=== PATIENT | female | born 1980 | race American Indian/Alaskan Native ===

== ENCOUNTER 2016-08-25 10:25 | Emergency (ER) | payer MEDICAID ==
[2016-08-25] MEDS ORDERED: BABY ASPIRIN PO ONE (11:11)
--- NOTE | 2016-08-25 11:16 | Emergency Department Report ---
Entered by DIAN BA, acting as scribe for SHALONDA GILMORE NP. Chief Complaint: Chest Pain Stated Complaint: CHEST PAIN/SOB/DIZZINESS/NAUSEOUS/LIGHTHEADED Time Seen by Provider: 08/25/16 11:05 - HPI History of Present Illness: 35 year old female who is non-toxic, non ill appearing, in no acute distress presents with c/o persistent right sided anterior chest pain that began this morning upon waking. She describes pain as aching with radiation to back, right shoulder. Pain worsens with deep breaths, palpation of chest wall. Associated symptoms include N/V, SOB, dizziness but pt denies swelling, numbness and tingling to extremities. - ROS Review of Systems: Reports right anterior chest pain, radiated pain to back and right shoulder, N/ V, SOB, dizziness. Denies swelling, numbness and tingling to extremities. - Exam Vital Signs: Vital Signs 08/25/16 10:52 Temperature 98.3 F Pulse Rate 69 Respiratory 22 Rate Blood Pressure 109/62 O2 Sat by Pulse 99 Oximetry Physical Exam: Constitutional: Non toxic appearing, NAD, non-diaphoretic. Cardiovascular: Normal rate and rhythm with normal S1/S2 sounds. Right anterior chest wall pain with radiation to right shoulder, back. Pain is reproducible with palpation. No carotid bruit. No edema. Respiratory: Lung sounds clear to auscultation bilaterally. MSE screening note: Focused history and physical exam performed. Due to findings the following was ordered:CBC, CMP, CCK, Chest X-ray, Troponin, EKG, serum hCG, ASA 81 mg, 3LPM O2 by nasal canula ED Disposition for MSE Condition: Stable This documentation as recorded by the scribe,DIAN BA,accurately reflects the service I personally performed and the decisions made by ,SHALONDA GILMORE, YAYA.
[2016-08-25 11:29] LABS: Hematocrit 33.6 % (30.3-42.9); Mean Corpuscular Volume 82 fl (79-97); Red Blood Count 4.12 M/mm3 (3.65-5.03); White Blood Count 9.4 K/mm3 (4.5-11.0)
[2016-08-25 11:30] LABS: Basophils % (Auto) 0.9 % (0.0-1.8); Eosinophils % (Auto) 1.1 % (0.0-4.3); Mean Corpuscular HGB Conc 33 % (30-34); Mean Corpuscular Hemoglobin 27 pg (28-32); Platelet Count 367 K/mm3 (140-440); Red Cell Distribution Width 15.6 % (13.2-15.2)
[2016-08-25 11:52] LABS: Creatine Kinase MB 2.1 ng/mL (0.0-4.0)
[2016-08-25 11:53] LABS: Alanine Aminotransferase 7 units/L (7-56); Albumin 4.3 g/dL (3.9-5); Albumin/Globulin Ratio 1.7 %; Alkaline Phosphatase 62 units/L (35-129); Anion Gap 16 mmol/L; Blood Urea Nitrogen 12 mg/dL (7-17); Calcium 9.2 mg/dL (8.4-10.2); Carbon Dioxide 25 mmol/L (22-30); Chloride 101.5 mmol/L (98-107); Creatine Kinase 180 units/L (30-135); Glucose 84 mg/dL (65-100); Potassium 4.1 mmol/L (3.6-5.0); Sodium 138 mmol/L (137-145); Total Protein 6.9 g/dL (6.3-8.2)
--- NOTE | 2016-08-25 12:13 | XRay Report ---
ROUTINE CHEST, TWO VIEWS: HISTORY: chest pain. The trachea, heart, mediastinal contour, lung jenkins and bony thorax are unremarkable. IMPRESSION: Unremarkable chest x-ray.
[2016-08-25] MEDS ORDERED: TORADOL IM ONE (16:33)
[2016-08-25 16:35] LABS: Creatine Kinase 168 units/L (30-135)
--- NOTE | 2016-08-25 16:36 | Emergency Department Report ---
HPI - General Chief Complaint: Chest Pain Time Seen by Provider: 08/25/16 16:12 - HPI HPI: This is a 35-year-old -[place] female presents to the emergency department with complaint of some midsternal and right-sided chest pain that started this morning. 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 She was given some aspirin through triage but otherwise did not take anything for symptoms prior to presentation. She denies any past medical history. Her primary care doctor is Dr. Campbell. No recent travel or sick contacts at home. She denies any family history of early cardiac events. ED Past Medical Hx - Past Medical History Previous Medical History?: Yes Additional medical history: ANEMIA, VAGINAL DELIVERY X 3 - Surgical History Past Surgical History?: Yes Hx Breast Surgery: Yes Additional Surgical History: BREAST SURGERY - Social History Smoking Status: Never Smoker - Medications Home Medications: Home Medications Medication Instructions Recorded Confirmed Last Taken Type Ibuprofen [Motrin] 600 mg PO Q8H PRN 08/25/16 08/25/16 Unknown History Loratadine 10 mg PO DAILY 08/25/16 08/25/16 08/25/16 History Sertraline [Zoloft] 50 mg PO QDAY 08/25/16 08/25/16 08/25/16 History ED Review of Systems ROS: Stated complaint: CHEST PAIN/SOB/DIZZINESS/NAUSEOUS/LIGHTHEADED Other details as noted in HPI Comment: All other systems reviewed and negative Constitutional: denies: chills, fever Eyes: denies: eye pain, eye discharge, vision change ENT: denies: ear pain, throat pain Respiratory: shortness of breath. denies: cough Cardiovascular: chest pain. denies: palpitations Gastrointestinal: denies: abdominal pain, nausea, diarrhea Genitourinary: denies: urgency, dysuria, discharge Musculoskeletal: denies: back pain, joint swelling, arthralgia Skin: denies: rash, lesions Neurological: other (dizzy). denies: headache, weakness, paresthesias Physical Exam - Physical Exam Vital Signs: Vital Signs 08/25/16 10:52 Temperature 98.3 F Pulse Rate 69 Respiratory 22 Rate Blood Pressure 109/62 O2 Sat by Pulse 99 Oximetry Physical Exam: GENERAL: The patient is well-developed well-nourished. HEENT: Normocephalic. Atraumatic. Extraocular motions are intact. Patient has moist mucous membranes. Pupils equal reactive to light bilaterally. NECK: Supple. Trachea is midline. CHEST/LUNGS: Clear to auscultation. There is no respiratory distress noted. Chest pain is reproducible to palpation of the chest wall and rib cage. HEART/CARDIOVASCULAR: Regular. There is no tachycardia. There is no gallop rub or murmur. ABDOMEN: Abdomen is soft, nontender. Patient has normal bowel sounds. There is no abdominal distention. SKIN: Skin is warm and dry. NEURO: The patient is awake, alert, and oriented. The patient is cooperative. The patient has no focal neurologic deficits. The patient has normal speech. MUSCULOSKELETAL: There is no tenderness or deformity. There is no limitation range of motion. There is no evidence of acute injury. ED Course Vital Signs 08/25/16 10:52 Temperature 98.3 F Pulse Rate 69 Respiratory 22 Rate Blood Pressure 109/62 O2 Sat by Pulse 99 Oximetry ED Medical Decision Making - Lab Data Result diagrams: 08/25/16 11:14 08/25/16 11:14 - EKG Data -: EKG Interpreted by Me EKG shows normal: sinus rhythm, axis, intervals, QRS complexes, ST-T waves Rate: normal - EKG Data When compared to previous EKG there are: no significant change Interpretation: normal EKG, unchanged when compared t (07/11/15) - Radiology Data Radiology results: image reviewed interpreted by me: Chest x-ray did not show any acute process. Heart is normal shape and size. No effusions. No pneumothorax. No signs of pneumonia seen. - Medical Decision Making 35-year-old female presents the emergency department with some midsternal and right-sided chest pain that wraps around the chest wall and rib cage. EKG does not have any signs of ST elevation MN, ischemia or dysrhythmia - Differential Diagnosis MN, PE, costochondritis, pneumonia Critical Care Time: No Critical care attestation.: If time is entered above; I have spent that time in minutes in the direct care of this critically ill patient, excluding procedure time. ED Disposition Clinical Impression: Dizziness Chest pain Qualifiers: Chest pain type: unspecified Qualified Code(s): R07.9 - Chest pain, unspecified Disposition: DISCHARGED TO HOME OR SELFCARE Is pt being admited?: No Condition: Stable Instructions: Chest Pain (ED) Additional Instructions: Please follow-up with your primary care doctor in the next few days. I have given referral for a local finish remover, Dr. John Benitez, to follow up regarding your chest discomfort. Return to the emergency department with any worsening of your symptoms or any acute distress. Referrals: PRIMARY MD KEM [Primary Care Provider] - 3-5 Days HOMA CAMPBELL MD [Staff Physician] - 3-5 Days JOHN BENITEZ MD [Staff Physician] - 3-5 Days Time of Disposition: 18:43
[2016-08-25 18:59] VITALS: BP 121/74
== END 2016-08-25 19:05 | disposition home or self-care (01) ==
LOC: ED 10:25
DX: R07.2 Precordial pain (principal); R42 Dizziness and giddiness
CPT/HCPCS: 36415; 71020; 80053; 82550; 82553; 84484; 84703; 85025; 85379; 93005; 93010; 96372; 99284; J1885

== ENCOUNTER 2016-10-12 15:44 | Emergency (ER) | payer MEDICAID ==
[2016-10-12 16:08] VITALS: BP 122/87
--- NOTE | 2016-10-12 16:36 | Emergency Department Report ---
Entered by ALHAJI WALLIS, acting as scribe for SHALONDA GILMORE NP. Chief Complaint: Dizziness Stated Complaint: BS LOW/DIZZY/ERIBERTO Time Seen by Provider: 10/12/16 16:26 - HPI History of Present Illness: Pt is non-toxic, non ill appearing, in no acute distress with c/o dizziness and mild SOB that began earlier today at work. Patient states that she felt like she was about to pass out. 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 She was given crackers and juice. Reports pressure in head Denies chest pain. Denies dysuria Denies nausea and vomiting PMHx Anemia - ROS Review of Systems: Patient reports dizziness and mild SOB Reports pressure in head Denies chest pain. Denies dysuria Denies nausea and vomiting - Exam Vital Signs: Vital Signs 10/12/16 16:04 Temperature 99.2 F Pulse Rate 77 Respiratory 18 Rate Blood Pressure 122/87 O2 Sat by Pulse 100 Oximetry Physical Exam: GENERAL: The patient is a well-developed, well-nourished female in no apparent distress. Patient is alert and acting appropriately for age. Alert and oriented 3, no apparent distress, normal gait, atraumatic. HEENT: Head is normocephalic and atraumatic. PERRL, Extraocular muscles are intact. Pupils are equal, round, and reactive to light and accommodation. Constitutional: Non toxic appearing, NAD. Cardiovascular: Normal rate and rhythm with normal S1/S2 sounds. Respiratory: No respiratory distress. Lung sounds clear to auscultation bilaterally. Abdomen: Abdomen is non-distended, soft with no tenderness to palpation in all quadrants. MSE screening note: Focused history and physical exam performed. Due to findings the following was ordered: Blood glucose , BMP, CBC, test, UA, and chest X-ray was ordered on patient. ED Disposition for MSE Condition: Stable This documentation as recorded by the scribe,ALHAJI WALLIS,accurately reflects the service I personally performed and the decisions made by ,SHALONDA GILMORE, YAYA.
[2016-10-12 16:53] LABS: Basophils % (Auto) 0.6 % (0.0-1.8); Eosinophils % (Auto) 0.8 % (0.0-4.3); Hematocrit 31.4 % (30.3-42.9); Hemoglobin 10.1 gm/dl (10.1-14.3); Mean Corpuscular HGB Conc 32 % (30-34); Mean Corpuscular Volume 80 fl (79-97); Platelet Count 336 K/mm3 (140-440); Red Blood Count 3.92 M/mm3 (3.65-5.03); Red Cell Distribution Width 16.5 % (13.2-15.2); White Blood Count 8.6 K/mm3 (4.5-11.0)
[2016-10-12 17:02] LABS: Anion Gap 16 mmol/L; BUN/Creatinine Ratio 13.33; Blood Urea Nitrogen 8 mg/dL (7-17); Calcium 8.7 mg/dL (8.4-10.2); Carbon Dioxide 26 mmol/L (22-30); Chloride 99.8 mmol/L (98-107); Glucose 86 mg/dL (65-100); Mean Corpuscular Hemoglobin 26 pg (28-32); Potassium 3.8 mmol/L (3.6-5.0); Sodium 138 mmol/L (137-145)
[2016-10-12 21:08] LABS: Bilirubin,Urine NEG (Negative); Blood,Urine NEG (Negative); Ketones,Urine NEG (Negative); Leukocyte Esterase,Urine NEG (Negative); Nitrite,Urine NEG (Negative); Protein,Urine <15 mg/dL mg/dL (Negative)
--- NOTE | 2016-10-13 08:56 | XRay Report ---
ROUTINE CHEST, TWO VIEWS: HISTORY: Shortness of breath. The trachea, heart, mediastinal contour, lung jenkins and bony thorax are unremarkable. No change since 08/25/16. IMPRESSION: Unremarkable chest x-ray.
== END 2016-10-13 00:36 | disposition left against medical advice (07) ==
LOC: ED 15:44
DX: R42 Dizziness and giddiness (principal); R06.02 Shortness of breath; Z53.21 Procedure and treatment not carried out due to patient leaving prior to being seen by health care provider
CPT/HCPCS: 36415; 71020; 80048; 81001; 84703; 85025

== ENCOUNTER 2016-12-06 17:04 | Emergency (ER) | payer MEDICAID ==
[2016-12-06 17:53] LABS: Basophils % (Auto) 0.8 % (0.0-1.8); Eosinophils % (Auto) 1.1 % (0.0-4.3); Hematocrit 31.3 % (30.3-42.9); Hemoglobin 10.2 gm/dl (10.1-14.3); Mean Corpuscular HGB Conc 33 % (30-34); Mean Corpuscular Hemoglobin 27 pg (28-32); Mean Corpuscular Volume 81 fl (79-97); Platelet Count 278 K/mm3 (140-440); Red Blood Count 3.85 M/mm3 (3.65-5.03); Red Cell Distribution Width 16.3 % (13.2-15.2); White Blood Count 5.2 K/mm3 (4.5-11.0)
[2016-12-06 18:10] LABS: Anion Gap 17 mmol/L; BUN/Creatinine Ratio 12.85; Blood Urea Nitrogen 9 mg/dL (7-17); Calcium 8.5 mg/dL (8.4-10.2); Carbon Dioxide 24 mmol/L (22-30); Chloride 99.8 mmol/L (98-107); Glucose 99 mg/dL (65-100); Potassium 3.5 mmol/L (3.6-5.0); Sodium 137 mmol/L (137-145)
--- NOTE | 2016-12-06 18:24 | XRay Report ---
FINAL REPORT EXAM: XR CHEST ROUTINE 2V HISTORY: chest pain / shortness of breath TECHNIQUE: PA and lateral views of the chest PRIORS: None. FINDINGS: Lines, tubes, and devices: N/A Lungs and pleura: Trachea is normal in position. Lungs are clear of infiltrate, pleural effusion, vascular congestion, or pneumothorax. Cardiomediastinal silhouette: Cardiac and mediastinal silhouettes are unremarkable. Other: Bony structures are intact. IMPRESSION: No acute cardiopulmonary process seen.
--- NOTE | 2016-12-07 00:39 | Emergency Department Report ---
HPI - General Chief Complaint: Chest Pain Time Seen by Provider: 12/07/16 00:35 - HPI HPI: 36-year-old -[place] female complaining of mid sternal chest pain without radiation for 3 days. Patient states pain is 4/10 mid chest mostly on the bone, sharp. Patient stated she had prior episodes of chest pain in the past. Patient denies any nausea, vomiting, diaphoresis, shortness of breath. Patient denies any exacerbating factors or alleviating factors. ED Past Medical Hx - Past Medical History Previous Medical History?: Yes Hx Psychiatric Treatment: Yes (anxiety) Additional medical history: ANEMIA, VAGINAL DELIVERY X 3 - Surgical History Hx Breast Surgery: Yes (breast ducts clogged) Additional Surgical History: tubal ligation - Social History Smoking Status: Never Smoker Substance Use Type: Prescribed - Medications Home Medications: Home Medications Medication Instructions Recorded Confirmed Last Taken Type Loratadine 10 mg PO DAILY 08/25/16 08/25/16 08/25/16 History Sertraline [Zoloft] 50 mg PO QDAY 08/25/16 08/25/16 08/25/16 History Ibuprofen [Motrin 600 MG tab] 600 mg PO Q8H PRN #14 tablet 12/07/16 Unknown Rx ED Review of Systems ROS: Stated complaint: MENTAL HEALTH EVALUATION/CHEST PAIN Other details as noted in HPI Comment: All other systems reviewed and negative Constitutional: no symptoms reported Respiratory: no symptoms reported Cardiovascular: chest pain Endocrine: no symptoms reported Musculoskeletal: as per HPI Physical Exam - Physical Exam Vital Signs: Vital Signs 12/06/16 12/07/16 17:05 00:13 Temperature 98.6 F Pulse Rate 84 74 Respiratory 16 12 Rate Blood Pressure 112/80 106/73 O2 Sat by Pulse 100 99 Oximetry Physical Exam: - General Limitations: No Limitations General appearance: alert, in no apparent distress - Head Head exam: Present: atraumatic, normocephalic - Eye Eye exam: Present: normal appearance, EOMI. Absent: nystagmus - ENT ENT exam: Present: normal exam, normal orophraynx, mucous membranes moist, normal external ear exam - Neck Neck exam: Present: normal inspection, full ROM. Absent: tenderness, meningismus - Respiratory Respiratory exam: Present: normal lung sounds bilaterally. Absent: respiratory distress, wheezes, rales, rhonchi, stridor, chest wall tenderness, accessory muscle use, decreased breath sounds, prolonged expiratory - Cardiovascular Cardiovascular Exam: Present: regular rate, normal rhythm, normal heart sounds. Tender mid anterior chest wall Absent: bradycardia, tachycardia, irregular rhythm, systolic murmur, diastolic murmur, rubs, gallop - GI/Abdominal GI/Abdominal exam: Present: soft, normal bowel sounds. Absent: distended, tenderness, guarding, rebound, rigid, pulsatile mass - Rectal Rectal exam: Present: deferred - Extremities Exam Extremities exam: Present: No edema - Back Exam Back exam: Present: normal inspection, full ROM. Absent: tenderness, CVA tenderness (R), CVA tenderness (L), muscle spasm, paraspinal tenderness, vertebral tenderness - Neurological Exam Neurological exam: Present: alert, oriented X3, normal gait, other (Extraocular movements intact. Tongue midline. No facial droop. Facial sensation intact to light touch in the V1, V2, V3 distribution bilaterally. 5 and 5 strength in 4 extremities.. Sensation is intact to light touch in 4 extremities.). Absent : motor sensory deficit - Psychiatric Psychiatric exam: Present: Normal affect - Skin Skin exam: Present: warm, dry, intact, normal color. Absent: rash ED Course Vital Signs 12/06/16 12/07/16 17:05 00:13 Temperature 98.6 F Pulse Rate 84 74 Respiratory 16 12 Rate Blood Pressure 112/80 106/73 O2 Sat by Pulse 100 99 Oximetry ED Medical Decision Making - Lab Data Result diagrams: 12/06/16 17:35 12/06/16 17:35 Critical care attestation.: If time is entered above; I have spent that time in minutes in the direct care of this critically ill patient, excluding procedure time. ED Disposition Clinical Impression: Chest pain Qualifiers: Chest pain type: other chest pain Qualified Code(s): R07.89 - Other chest pain Disposition: - TO HOME OR SELFCARE Is pt being admited?: No Does the pt Need Aspirin: No Condition: Stable Instructions: Chest Pain (ED) Prescriptions: Ibuprofen [Motrin 600 MG tab] 600 mg PO Q8H PRN #14 tablet PRN Reason: Pain Referrals: HOMA CAMPBELL MD [Primary Care Provider] - 3-5 Days
[2016-12-07] MEDS ORDERED: MORPHINE IV ONE (00:43)
[2016-12-07] MEDS ORDERED: ZOFRAN IV ONE (00:43)
[2016-12-07] MEDS ORDERED: MORPHINE ONE (00:51)
[2016-12-07] MEDS ORDERED: NACL ONE (00:52)
[2016-12-07 01:24] VITALS: BP 104/61
== END 2016-12-07 02:02 | disposition home or self-care (01) ==
LOC: ED 17:04 → EEVIPCON 17:04 → ED 12-07 02:02
DX: R07.89 Other chest pain (principal); F41.9 Anxiety disorder, unspecified; Z98.51 Tubal ligation status
CPT/HCPCS: 36415; 71020; 80048; 84484; 84703; 85025; 93005; 93010; 96374; 96375; 99285; J2270; J2405